=== PATIENT | male | born 1955 | race Caucasian/White ===

== ENCOUNTER → 2017-10-27 | Outpatient (CLI) | payer OTHER | LOC: COL.RAD 13:07 | DX: S46.011A Strain of muscle(s) and tendon(s) of the rotator cuff of right shoulder, initial encounter (principal); M75.81 Other shoulder lesions, right shoulder; M19.011 Primary osteoarthritis, right shoulder; M24.111 Other articular cartilage disorders, right shoulder ==

== ENCOUNTER 2017-10-30 14:27 | Outpatient (RCR) | payer OTHER | END 2017-11-28 14:53 | disposition home or self-care (01) | LOC: WSOH 14:27 | DX: S46.011A Strain of muscle(s) and tendon(s) of the rotator cuff of right shoulder, initial encounter (principal); W00.0XXA Fall on same level due to ice and snow, initial encounter; Y99.0 Civilian activity done for income or pay ==

== ENCOUNTER → 2017-11-09 | Outpatient (CLI) | payer OTHER | LOC: ZCOL.LAB 15:53 | DX: Z01.812 Encounter for preprocedural laboratory examination (principal); Z86.14 Personal history of Methicillin resistant Staphylococcus aureus infection ==

== ENCOUNTER 2019-12-16 09:29 | Emergency (ER) | payer BC ==
[~2019-12-16] VITALS: Ht 170.2 cm; Wt 106.8 kg
[2019-12-16 09:41] VITALS: TEMP 98.9
[2019-12-16] MEDS ORDERED: AMOXICILLIN 8751 TAB PO (11:20)
[2019-12-16] MEDS ORDERED: ZOCOR 40MG40 MG PO (11:22)
[2019-12-16] MEDS ORDERED: PROSCAR 5MG5 MG PO (11:22)
[2019-12-16] MEDS ORDERED: EXFORGE HCT 5 M1 TAB PO (11:22)
[2019-12-16] MEDS ORDERED: NORVASC 5MG5 MG/TAB PO (11:23)
[2019-12-16 11:28] VITALS: BP 137/80; PULSE 74
== END 2019-12-16 11:30 | disposition home or self-care (01) ==
LOC: COL.ER 09:29
DX: S02.32XA Fracture of orbital floor, left side, initial encounter for closed fracture (principal); S02.2XXA Fracture of nasal bones, initial encounter for closed fracture; R40.2410 Glasgow coma scale score 13-15, unspecified time; W17.89XA Other fall from one level to another, initial encounter; Y92.009 Unspecified place in unspecified non-institutional (private) residence as the place of occurrence of the external cause

== ENCOUNTER → 2023-04-18 | Outpatient (CLI) | payer MEDICARE ==
[~2023-04-18] MED LIST: AMOXICILLIN 8751 TAB PO; CIALIS5 MG PO; DIOVAN 160MG160 MG PO; EXFORGE HCT 5 M1 TAB PO; HYDROCHLOROTHIAZIDE PO; HYGROTON 2525 MG/TAB PO; INFLECTRA100 MG IV; LIPITOR 10MG10 MG PO; NORCO 325 MG-51 TAB PO; NORVASC 10MG10 MG PO; NORVASC 5MG5 MG/TAB PO; OMEGA-3 1000 MG1 CAP PO; OPTIFLEX-G 7501 TAB PO; PROSCAR 5MG5 MG PO; ZOCOR 40MG40 MG PO; ZYRTEC ALLERGY10 MG PO
== END ==
LOC: COL.RAD 10:30
DX: C43.9 Malignant melanoma of skin, unspecified (principal); R59.0 Localized enlarged lymph nodes
CPT/HCPCS: A9520-JZ

== ENCOUNTER → 2023-07-19 | Outpatient (CLI) | payer MEDICARE | LOC: COL.RAD 07:02 | DX: C61 Malignant neoplasm of prostate (principal) | CPT/HCPCS: A9575 ==